=== PATIENT | female | born 1985 | race Hispanic/Latino ===

== ENCOUNTER 2020-09-30 23:18 | Emergency (ER) | payer SELFPAY ==
--- NOTE | 2020-10-01 01:15 | ER ---
Nurse's Notes [facility] [place] Name: Hilaria Espinoza Age: 34 yrs Sex: Female : 1985 Arrival Date: 09/30/2020 Time: 23:20 Bed Waiting Private MD: Diagnosis: Presentation: 09/30 23:38 Chief complaint: Patient states: Pain to left lower abdomen/pelvic area that began at lp1 1830; patient reports hx of L ovarian mass, 9cm, told not cancer; Denies any urinary symptoms. Coronavirus screen: Client denies travel out of the [place] in the last 14 days. At this time, the client does not indicate any symptoms associated with coronavirus-19. Ebola Screen: No symptoms or risks identified at this time. Initial Sepsis Screen: Does the patient meet any 2 criteria? No. Patient's initial sepsis screen is negative. Does the patient have a suspected source of infection? No. Patient's initial sepsis screen is negative. Risk Assessment: Do you want to hurt yourself or someone else? Patient reports no desire to harm self or others. Onset of symptoms was September 30, 2020 at 18:30. 23:38 Method Of Arrival: Wheelchair lp1 23:38 Acuity: RODNEY 3 lp1 Triage Assessment: 23:41 General: Appears uncomfortable, Behavior is appropriate for age. Pain: Complains of lp1 pain in left lower quadrant Pain currently is 8 out of 10 on a pain scale. Quality of pain is described as sharp, Noted to be grimacing. Neuro: Level of Consciousness is awake, alert, obeys commands. Respiratory: Respiratory effort is even, unlabored. Derm: Skin is pink, warm \T\ dry. SPECIAL EVENTS DIRECTOR: 23:40 LMP N/A - Irregular menses lp1 Historical: - Allergies: 23:40 SHELLFISH; lp1 23:40 Iodine; lp1 - Home Meds: 23:40 glipizide 5 mg Oral tab three times a day [Active]; citalopram 10 mg tab 1 tab once lp1 daily [Active]; buspirone 7.5 mg Oral tab 1 tab 2 times per day [Active]; - PMHx: 23:40 Diabetes - NIDDM; Anxiety; Bipolar disorder; lp1 - PSHx: 23:40 None; lp1 - Immunization history:: Adult Immunizations up to date. - Social history:: Smoking status: Patient denies any tobacco usage or history of. Screenin:40 Abuse screen: Denies threats or abuse. Denies injuries from another. Nutritional lp1 screening: No deficits noted. Tuberculosis screening: No symptoms or risk factors identified. Fall Risk None identified. Assessment: 10/01 01:14 Reassessment: Notified by Registration patient to leave due to feeling better. lp1 Vital Signs: 09/30 23:38 BP 117 / 80; Pulse 74; Resp 18; Pulse Ox 99% on R/A; Weight 113.4 kg (R); Height 5 ft. lp1 1 in. (154.94 cm); Pain 8/10; 23:38 Body Mass Index 47.24 (113.40 kg, 154.94 cm) lp1 ED Course: 23:20 Patient arrived in ED. am2 23:39 Triage completed. lp1 23:40 Arm band placed on. lp1 10/01 01:15 Patient's name was called from ER lobby. Unable to locate patient. Will disposition as lp1 left without being seen by a provider. Administered Medications: No medications were administered Outcome: 01:15 Patient left the ED. lp1 Signatures: Yola Ferreira RN RN lp1 Christin Duncan am2
[2020-10-01 02:26] VITALS: BP 117/80; O2SAT 99
== END 2020-10-01 01:15 | disposition left against medical advice (07) ==
LOC: ER 23:18
DX: R10.32 Left lower quadrant pain (principal); Z53.21 Procedure and treatment not carried out due to patient leaving prior to being seen by health care provider; E11.9 Type 2 diabetes mellitus without complications; F31.9 Bipolar disorder, unspecified; Z79.84 Long term (current) use of oral hypoglycemic drugs
CPT/HCPCS: 99281